=== PATIENT | female | born 2005 | race Caucasian/White ===

== ENCOUNTER → 2023-10-09 14:03 | Outpatient (BNVA) | payer MEDICAID, SELFPAY | PROVIDERS: Visit Provider Nurse Practitioner Women's Health | DX: Z34.90 Encounter for supervision of normal pregnancy, unspecified, unspecified trimester (principal); Z32.00 Encounter for pregnancy test, result unknown; R82.90 Unspecified abnormal findings in urine | CPT/HCPCS: 81000; 81025; 87077; 87086; 87184 ==

== ENCOUNTER → 2023-10-31 14:20 | Outpatient (BNVA) | payer MEDICAID, SELFPAY | PROVIDERS: Visit Provider Obstetrics & Gynecology | DX: Z36.87 Encounter for antenatal screening for uncertain dates (principal) | CPT/HCPCS: 76805 ==

== ENCOUNTER 2023-12-02 18:57 | Emergency (ER) | payer BC, MEDICAID, SELFPAY ==
[2023-12-02 19:04] VITALS: BP 110/75; PULSE 110; RESP 16; TEMP 36.9; O2SAT 100; BMI 24.7
--- NOTE | 2023-12-02 19:49 | ED_ITS ---
HPI - Chest Pain General: Chief Complaint: Chest Pain Stated Complaint: chest pains sob Time Seen by Provider: 12/02/23 19:16 History of Present Illness: 18-year-old female presents to the emerg ency department for shortness of breath and chest pain. SHe is 24 weeks with LMP of 06/14/2023. 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 Patient denies any complications related to her . She reports she is with her third child and is raising 2 at home. Patient reports her shortness of breath and chest pain comes and goes. She denies fever, swelling, hemoptysis, sputum production. She has a history of exercise-induced asthma and occasionally will have a mild wheeze. She says sometimes she gets pains in both sides of her chest that are sharp and fleeting. Denies palpitations, lightheadedness, syncope. She endorses anxiety and stress. Stress seems to make it worse. She denies any vaginal bleeding, vomiting, diarrhea, vaginal discharge. She is taking a vitamin and no other medications. Denies substance abuse. No history of cardiopulmonary disea se or arrhythmia. Associated symptoms: Deny abdominal pain, fever(s), nausea, syncope or vomiting Review of Systems General: Reports: 10 or more systems reviewed and unremarkable except in HPI and below Const: Denies: fever(s), chills or body aches Eyes: Denies: change in vision ENMT: Denies: throat pain Card: Denies: edema or syncope Resp: Denies: productive cough GI: Denies: abdominal pain, nausea, vomiting or diarrhea : Denies: flank pain, dysuria or urinary frequency Musc: Denies: neck pain, back pain, extremity pain or extremity swelling Skin/Breast: Denies: rash or erythema Neuro: Denies: headache(s), numbness in extremities, weakness in extremities, lack of coordination or difficulty walking Psych: Reports: anxiety and other ( Stress ) PFSH ED PFSH: Medical History No pertinent past medical history neghx:htn,dm,thyroid,dvt/pe PCP: none Surgical History No pertinent past surgical history Family History Denies family history of Colon cancer Ovarian cancer Diabetes Depression Heart disease Breast cancer Hypertension Uterine cancer Thyroid disease Stroke Physical Exam Narrative: EXAM NARRATIVE: Well-appearing, nontoxic, no acute distress. SpO2 was hooked up and she is 100% on room air with normal work of breathing. She has mild pallor to her skin although endorses pale skin at baseline. Conjunctiva and mucous membranes in the mouth are probably within normal limits or very slightly pale. Heart rate is noted to jump up by 10 bpm when I enter. Patient is noted to be anxious and on edge. She does have what I suspect to be a hyperdynamic murmur. No ankle swelling. No calf tenderness. No JVD. Lungs are clear to auscultation b ilaterally with normal work of breathing. Const: COMMON NORMALS: no limitations, alert and well nourished EXAM LIMITA TIONS: no altered mental status HENMT: COMMON NORMALS: normocephalic, atraumatic and external ears normal HEAD & SCALP: normocephalic and atraumatic EXTERNAL EAR: Yes external ears normal MOUTH: no muffled voice Eye: COMMON NORMALS: EOMs intact bilaterally and no scleral icterus Neck/C-Spine: COMMON NORMALS: no JVD GENERAL: Yes normal visual inspection and Yes trachea midline Resp: COMMON NORMALS: normal respiratory effort, No use of accessory muscles and clear to auscultation bilaterally AUSCULTATION: clear to auscultation bilaterally Cardio: COMMON NORMALS: no JVD and regular rhythm RATE: tachycardic RHYTHM: regular rhythm GI: COMMON NORMALS: Soft to palpation and non-tender PALPATION: Yes Soft to palpation and No Guarding due to palpation present (GI) Extremity: COMMON NORMALS: normal to inspection Neuro: COMMON NORMALS: moves all extremities, no focal motor deficits and no sensory deficits noted SENSORIUM/ORIENTATION: Yes alert SPEECH: speech normal Psych: COMMON NORMALS: mental status grossly normal, Normal thought process present, cooperative, normal affect and speech normal SPEECH: Yes normal speech THOUGHT PROCESS: Normal thought process present Skin: COMMON NORMALS: no rashes or lesions noted, turgor normal and no jaundice GENERAL SKIN EXAM: no rashes or lesions noted and turgor normal Course Vital Signs: Vital signs: Vital Signs Temperature 98.4 F 12/02/23 19:04 Pulse Rate 110 H 12/02/23 19:04 Respiratory Rate 16 12/02/23 19:04 Blood Pressure 110/75 12/02/23 19:04 Pulse Oximetry 100 12/02/23 19:04 Oxygen Delivery Me thod Room Air 12/02/23 19:04 MDM - Chest Pain Medical Decision Making 18-year-old female presents with atypical chest pain and shortness of breath. Low clinical suspicion for DVT or PE. Lungs are clear and there is no fever or sputum production. Low suspicion for pneumonia. No wheezing or prolonged expiratory phase; low suspicion for asthma exacerbation. She is not within the last month of gestation so cardiomyopathy of unlikely. No change in urine output and no signs of swelling or JVD, low suspicion for renal failure or primary heart failure. Patient may be slightly anemic. I asked to check her hemoglobin level but she does not like needles and is going to get blood drawn on anyway. She says she will add it to her lab test for . Patient is noted to be anxious and admits to stress. Times of stress seem to worsen her shortness of breath and chest pain. Low suspicion for acute coronary syndrome. Discussed differential diagnosis with patient. EKG was performed. Given normal work of breathing, normal lung exam, normal oxygenation, the patient did not feel like pursuing a chest x-ray or any further laboratory workup in the emergency department. I think this is reasonable given the low pretest suspicion for acute organic pathology at this time No radiology studies performed this visit EKG Data EKG 1: Interpretation: Sinus tachycardia, rate 103, normal axis, normal intervals, no concerning ST segment elevations or depressions, no hyperacute T waves. No ectopy. No signs of Brugada syndrome, some mild nonspecific T wave changes, no signs of hypertrophic obstructive cardiomyopathy. Discharge Plan Discharge Patient Disposition: Home Clinical Impression: Dyspnea Qualifiers: Dyspnea type: shortness of breath Qualified Code(s): R06.02 - Shortness of breath Condition: Stable Prescriptions: No Action Gummies 400 mcg-35 mg- 25 mg-5 mg tablet,chewable PO DAILY Discharge Orders: Discharge ED (Routine); Ordered 12/02/23 Ordered By: Wilmer Hadley Referrals: Fortunato Jackson MD [Physician] - 12/05/23 Discharge Diet: Usual diet Discharge Activity: Resume usual activity Patient Instructions: Shortness of Breath (ED) Activity Restrictions/Additional Instructions: Since you have deferred blood work in the emergency department, please call your doctor to see if they will add on a hemoglobin test for when you get your blood sugar checked. Return to the emergency department if you have a fever, coughing up blood, swelling, calf pain, palpitations, passing out, low blood pressure, or other emergent concerns. Coding Level of Care Code ED H[employer] for Truman Elkins
== END 2023-12-02 20:00 | disposition home or self-care (01) ==
PROVIDERS: Emergency Provider Emergency Medicine
DX: R06.02 Shortness of breath (principal)
CPT/HCPCS: 99282

== ENCOUNTER 2023-12-03 06:42 | Emergency (ER) | payer BC, MEDICAID, SELFPAY ==
--- NOTE | 2023-12-03 07:00 | ED_ITS ---
HPI - URI/Sore Throat 2 General: Chief Complaint: Upper Respiratory Infection Stated Complaint: cough, fever Time Seen by Provider: 12/03/23 06:44 Source: patient Mode of arrival: ambulatory History of Present Illness: 18-year-old female who is approximately 24 weeks with an LMP of 06/14/2023 EDC of 03/21/2024. She was seen yesterday for cough upper respiratory symptoms she had some chest discomfort as well she refused blood work at the time she was seen. ER note reviewed. She reported she has had some anemia during the . Presumptively based on her history to be viral respiratory infection possibly complicated by anemia and is stress. Patient returns today she is running a bit of a low-grade fever she is continuing to have nonproductive cough. Other family members in the home have similar symptoms. MD elicited complaint: fever and cough Exacerbating factors: nothing Relieving factors: nothing Associated symptoms: Reports congestion, cough and fever(s); Deny abdominal pain, chills or chest pain Review of Systems 2 Const: Reports: fever(s); Denies: chills Card: Denies: chest pain Resp: Reports: non-productive cough; Denies: dyspnea GI: Denies: abdominal pain : Denies: dysuria, urinary frequency or urinary urgency Musc: Denies: neck pain or back pain Skin/Breast: Denies: rash PFSH ED 2 PFSH: Medical History No pertinent past medical history neghx:htn,dm,thyroid,dvt/pe PCP: none Surgical History No pertinent past surgical history Family History Denies family history of Colon cancer Ovarian cancer Diabetes Depression Heart disease Breast cancer Hypertension Uterine cancer Thyroid disease Stroke Physical Exam 2 Const: COMMON NORMALS: no acute distress GENERAL APPEARANCE: cooperative and comfortable ORIENTATION/CONSCIOUSNESS: Yes awake, Yes oriented to person, Yes oriented to place and Yes oriented to time HENMT: COMMON NORMALS: normocephalic, atraumatic and hearing grossly normal bilaterally HEAD & SCALP: normocephalic and atraumatic Resp: COMMON NORMALS: normal respiratory effort, No retractions, No use of accessory muscles and clear to auscultation bilaterally AUSCULTATION: clear to auscultation bilaterally Cardio: COMMON NORMALS: regular rate, regular rhythm and No murmurs present (Cardio) RATE: regular rate RHYTHM: regular rhythm GI: COMMON NORMALS: Soft to palpation and No hepatosplenomegaly present A USCULTATION: Yes normoactive bowel sounds PALPATION: Yes Soft to palpation, No Tenderness to palpation present (GI), No Guarding due to palpation present (GI) and Yes No hepatosplenomegaly present Extremity: COMMON NORMALS: normal to inspection, capillary refill normal, no clubbing, cyanosis or edema, no calf tenderness and no pedal edema Neuro: SENSORIUM/ORIENTATION: Yes oriented to person, Yes oriented to place and Yes oriented to time Skin: COMMON NORMALS: no rashes or lesions noted GENERAL SKIN EXAM: no rashes or lesions noted Course 2 Vital Signs: Vital signs: Vital Signs Temperature 100 F H 12/03/23 07:03 Pulse Rate 65 12/03/23 07:54 Blood Pressure 125/87 12/03/23 07:54 Pulse Oximetry 100 12/03/23 07:54 Oxygen Delivery Me thod Room Air 12/03/23 07:03 MDM - URI/Sore Throat Medical Decision Making COVID and flu were negative. Patient did have a low-grade fever suspect is viral patient declined chest x-ray follow-up with primary care Medical Records I reviewed the patient's medical records. Lab Data I reviewed the patient's lab results. 12/03/23 07:33 12/03/23 07:33 Laboratory Results WBC 6.99 10^3/uL (4.5-13.0) 12/03/23 07:33 RBC 3.41 10^6/uL (3.85-5.65) L 12/03/23 07:33 Hgb 9.30 g/dL (12.4-14.8) L 12/03/23 07:33 Hct 29.6 % (36-47) L 12/03/23 07:33 MCV 86.8 fl (85-98) 12/03/23 07:33 MCH 27.3 pg (27-33) 12/03/23 07: MCHC 31.4 g/dL (30-55) 12/03/23 07:33 RDW 13.7 % (12.1-15.1) 12/03/23 07:33 Plt Count 217 10^3/cmm (157-399) 12/03/23 07:33 MPV 9.0 fL (7.4-10.4) 12/03/23 07:33 Neut % (Auto) 86.0 % 12/03/23 07:33 Lymph % (Auto) 5.7 % 12/03/23 07:33 [place] % (Auto) 6.3 % 12/03/23 07:33 Eos % (Auto) 1.0 % 12/03/23 07:33 Baso % (Auto) 0.3 % 12/03/23 07:33 Neut # (Auto) 6.01 10^3/uL (1.8-8.0) 12/03/23 07:33 Lymph # (Auto) 0.4 10^3/uL (1.5-6.5) L 12/03/23 07:33 [place] # (Auto) 0.4 10^3/uL (0.2-0.9) 12/03/23 07:33 Eos # (Auto) 0.1 10^3/uL (0.0-0.8) 12/03/23 07:33 Baso # (Auto) 0.0 10^3/uL (0.0-0.1) 12/03/23 07:33 Nucleated RBC % (auto) 0 % 12/03/23 07:33 Nucleated RBCs # 0.0 /100WBC 12/03/23 07:33 Sodium 132 mmol/L (136-145) L 12/03/23 07:33 Potassium 4.0 mmol/L (3.5-5.1) 12/03/23 07:33 Chloride 100 mmol/L (98-107) 12/03/23 07:33 Carbon Dioxide 22 mmol/L (22-29) 12/03/23 07:33 Anion Gap 14.0 (5-19) 12/03/23 07:33 BUN 3 mg/dL (6-20) L 12/03/23 07:33 Creatinine 0.5 mg/dL (0.5-0.9) 12/03/23 07:33 GFR Calculation 157.3 mL/min (90-130) H 12/03/23 07:33 Glucose 97 mg/dL (65-115) 12/03/23 07:33 Calculated Osmolality 270 mOsm/kg (285-295) L 12/03/23 07:33 Calcium 8.7 mg/dL (8.5-10.5) 12/03/23 07:33 Influenza Type A Ag negative (Negative) 12/03/23 08:12 Influenza Type B Ag negative (Negative) 12/03/23 08:12 SARS-CoV-2 Ag (Rapid) negative (Negative) 12/03/23 08:12 All radiology interpretation(s) finalized by discharge Discharge Plan Discharge Patient Disposition: Home Clinical Impression: Upper respiratory infection Condition: Stable Prescriptions: No Action Gummies 400 mcg-35 mg- 25 mg-5 mg tablet,chewable 1 tab PO DAILY sertraline [Zoloft] 25 mg tablet 25 mg PO DAILY Qty: 30 1RF Rx Instructions: take 1/2 tab daily x 7 days then increase to full tablet cephalexin 500 mg tablet 500 mg PO TID Qty: 30 0RF Discharge Orders: Discharge ED (Routine); Ordered 12/03/23 Ordered By: Star Clifford Discharge Diet: Usual diet Discharge Activity: Increase activity as tolerated Patient Instructions: Opioid Safety, Pain Management Activity Restrictions/Additional Instructions: Thank you for choosing [facility] for your healthcare needs today. Please realize this is an emergency room and that we are providing you with a medical screening exam and this may not be complete and all inclusive of all the testing and or work up that you may need to determine your ailment or severity of your illness. It is very important that you follow up as instructed or that you return to the Emergency Department should you have concerns or if your condition changes or worsens in any way. You are seen today for cough and a low-grade fever flu COVID are negative. We did recommend a chest x-ray and you have declined. Follow-up with your primary care doctor or economic historian. Coding Level of Care Code ED [employer] for Truman Elkins
[2023-12-03 07:03] VITALS: BP 112/77; PULSE 120; TEMP 37.7; O2SAT 97; BMI 24.5
[2023-12-03 07:39] LABS: Basophils % 0.3 %; Eosinophils # 0.1 10^3/uL (0.0-0.8); Hematocrit 29.6 % (36-47); Lymphocytes # 0.4 10^3/uL (1.5-6.5); Lymphocytes % 5.7 %; Mean Corpuscular HGB Conc 31.4 g/dL (30-55); Mean Corpuscular Hemoglobin 27.3 pg (27-33); Mean Corpuscular Volume 86.8 fl (85-98); Monocytes # 0.4 10^3/uL (0.2-0.9); Monocytes % 6.3 %; Neutrophils # 6.01 10^3/uL (1.8-8.0); Nucleated Red Blood Cells % 0 %; Platelet Count 217 10^3/cmm (157-399); Red Blood Count 3.41 10^6/uL (3.85-5.65); Red Cell Distribution Width 13.7 % (12.1-15.1); White Blood Count 6.99 10^3/uL (4.5-13.0)
[2023-12-03 07:54] VITALS: BP 125/87; PULSE 65; O2SAT 100
[2023-12-03 08:00] LABS: Blood Urea Nitrogen 3 mg/dL (6-20); Calcium 8.7 mg/dL (8.5-10.5); Carbon Dioxide 22 mmol/L (22-29); Chloride 100 mmol/L (98-107); Creatinine Clr Calc Pharmacy 148.0893; Glomerular Filtration Rate 157.3 mL/min (90-130); Glucose 97 mg/dL (65-115); Osmolality Calculated 270 mOsm/kg (285-295); Sodium 132 mmol/L (136-145)
[2023-12-03 08:33] LABS: Influenza A by IFA negative (Negative); Influenza B by IFA negative (Negative)
[2023-12-03 08:47] LABS: SARS Covid-2 Antigen negative (Negative)
== END 2023-12-03 09:22 | disposition home or self-care (01) ==
PROVIDERS: Emergency Provider Family Medicine
DX: J06.9 Acute upper respiratory infection, unspecified (principal); Z11.52 Encounter for screening for COVID-19
CPT/HCPCS: 36415; 80048; 85025; 87426; 87804; 99283

== ENCOUNTER → 2023-12-05 16:00 | Outpatient (BNVA) | payer BC, MEDICAID, SELFPAY | PROVIDERS: Visit Provider Nurse Practitioner Women's Health | DX: O99.891 Other specified diseases and conditions complicating pregnancy; R82.71 Bacteriuria; O26.892 Other specified pregnancy related conditions, second trimester; Z67.91 Unspecified blood type, Rh negative; O99.342 Other mental disorders complicating pregnancy, second trimester; F32.A Depression, unspecified; Z36.2 Encounter for other antenatal screening follow-up; Z3A.24 24 weeks gestation of pregnancy | CPT/HCPCS: 81000; 82950; 87077; 87086; 87184 ==

== ENCOUNTER → 2023-12-10 08:00 | Outpatient (BNVA) | payer BC, MEDICAID, SELFPAY | PROVIDERS: Visit Provider Obstetrics & Gynecology | DX: Z34.80 Encounter for supervision of other normal pregnancy, unspecified trimester (principal) | CPT/HCPCS: 82951; 82952 ==

== ENCOUNTER → 2024-01-02 15:39 | Outpatient (BNVA) | payer BC, MEDICAID, SELFPAY | PROVIDERS: Visit Provider Obstetrics & Gynecology | DX: Z34.80 Encounter for supervision of other normal pregnancy, unspecified trimester (principal) | CPT/HCPCS: 81000; 85025 ==

== ENCOUNTER 2024-01-25 21:36 | Outpatient (CLI) | payer BC, MEDICAID, SELFPAY ==
[2024-01-25 21:30] VITALS: BMI 25.3
[2024-01-25 21:47] VITALS: BP 117/68; PULSE 85
[2024-01-25 22:26] LABS: Blood Urine Trace (Negative); Glucose Urine UA Norm (Normal); Ketones Urine Negative (Negative); Protein Urine Trace (Negative); Specific Gravity, Urine 1.015 (1.005-1.030); Urine Appearance Cloudy (CLEAR); Urine Color Yellow (Yellow); pH Urine 7 (5-7)
[2024-01-25 22:27] LABS: Bilirubin Urine Neg (Negative); Leukocyte Esterase Urine 1+ (Negative); Nitrate Urine Positive (Negative); Urobilinogen Urine Norm (Negative)
[2024-01-25 22:28] LABS: Bacteria Urine 4+ /hpf; RBC Urine 0-4 /hpf (0-2)
[2024-01-25 22:29] LABS: Add Urine Culture? Yes; Hyaline Casts Urine 0-4 /lpf; Mucus Urine TRACE /hpf
[2024-01-25 22:52] VITALS: BP 115/59; PULSE 87
--- NOTE | 2024-01-25 23:00 | PC.NURSE ---
Patient's preferred pharmacy is [facility] however they are closed on Saturday and she would be unable to fill prescription until Saturday. 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 Confirmed with patient that [facility] hours are [phone] on Sundays.
== END 2024-01-25 23:02 | disposition home or self-care (01) ==
LOC: OPOB 21:37 → OBGYN 21:38
PROVIDERS: Visit Provider Family Medicine
DX: O26.899 Other specified pregnancy related conditions, unspecified trimester (principal); Z3A.00 Weeks of gestation of pregnancy not specified; R10.9 Unspecified abdominal pain
CPT/HCPCS: 59025; 81001; 87077; 87086; 87186; 99211

== ENCOUNTER 2024-01-29 08:40 | Oncology outpatient (recurring) (ONCR) | payer BC, MEDICAID, SELFPAY ==
[2024-01-29 11:36] VITALS: BP 114/72; PULSE 111; RESP 16; TEMP 36.7; O2SAT 99
[2024-01-29 11:55] VITALS: BP 99/64; PULSE 102; RESP 16; TEMP 36.4; O2SAT 99
[2024-01-29 12:43] VITALS: BP 99/64; PULSE 102; RESP 16; TEMP 36.4; O2SAT 99
== END 2024-01-30 23:59 | disposition home or self-care (01) ==
LOC: ONCMED 08:42
PROVIDERS: PCP Family Medicine; Visit Provider Family Medicine
DX: O26.893 Other specified pregnancy related conditions, third trimester (principal); Z67.91 Unspecified blood type, Rh negative
CPT/HCPCS: 36415; 36430; 86850; 86900; 90384

== ENCOUNTER 2024-02-12 10:25 | Outpatient (CLI) | payer BC, MEDICAID, SELFPAY ==
[2024-02-12 10:47] VITALS: BP 113/73; PULSE 127
[2024-02-12 11:47] LABS: Add Urine Culture? Yes; Bacteria Urine 3+ /hpf; Bilirubin Urine Neg (Negative); Blood Urine Neg (Negative); Glucose Urine UA Norm (Normal); Ketones Urine 1+ (Negative); Leukocyte Esterase Urine 2+ (Negative); Nitrate Urine Positive (Negative); Protein Urine Neg (Negative); RBC Urine 0-4 /hpf (0-2); Specific Gravity, Urine 1.015 (1.005-1.030); Squamous Epithelial Cell Urine 0-4 /hpf (0-5); Sulfosalicylic Acid Urine Negative (Negative); Urine Appearance Hazy (CLEAR); Urine Color Yellow (Yellow); Urobilinogen Urine Norm (Negative); WBC Urine >100 /hpf (0-5); pH Urine 8 (5-7)
[2024-02-12 11:48] VITALS: BMI 25.4
[2024-02-12 11:50] VITALS: BP 107/64; PULSE 93
[2024-02-12] MEDS: lactated ringers 1,000 ML 999 ML IV (12:00)
[2024-02-12] MEDS: cefTRIAXone 1,000 MG in sodium chloride 0.9% (plus) 50 ML 100 MG IV (12:37)
== END 2024-02-12 13:20 | disposition home or self-care (01) ==
LOC: OPOB 10:33 → OBGYN 10:34
PROVIDERS: Family Medicine; PCP Family Medicine; Visit Provider Family Medicine
DX: O26.899 Other specified pregnancy related conditions, unspecified trimester (principal); Z3A.00 Weeks of gestation of pregnancy not specified; R10.9 Unspecified abdominal pain
CPT/HCPCS: 59025; 81001; 87077; 87086; 87186; 99211; J0696; J7120

== ENCOUNTER 2024-02-27 20:36 | Inpatient (IN) | payer BC, MEDICAID, SELFPAY ==
[2024-02-27] VITALS (41 sets, daily range): BP systolic 89–130; BP diastolic 41–81; PULSE 71–121; TEMP 36.4–36.6; O2SAT 90–100; BMI 26.0
[2024-02-27 19:46] LABS: Nitrazine Paper, PH Negative
[2024-02-27 19:53] LABS: Actim Prom Negative
[2024-02-27 19:58] LABS: Urine Appearance Cloudy (CLEAR); Urine Color Yellow (Yellow); pH Urine 6.5 (5-7)
[2024-02-27 19:59] LABS: Add Urine Microscopic? YES; Bilirubin Urine Neg (Negative); Blood Urine Neg (Negative); Glucose Urine UA Norm (Normal); Ketones Urine Negative (Negative); Leukocyte Esterase Urine Negative (Negative); Nitrate Urine Negative (Negative); Protein Urine Neg (Negative); Urobilinogen Urine Norm (Negative)
[2024-02-27 20:02] LABS: Add Urine Culture? No; Amorphous Sediment Urine 2+ /hpf; Bacteria Urine TRACE /hpf; Mucus Urine TRACE /hpf; Squamous Epithelial Cell Urine 0-4 /hpf (0-5); WBC Urine 0-4 /hpf (0-5)
[2024-02-27 21:24] LABS: Basophils % 0.4 %; Eosinophils # 0.2 10^3/uL (0.0-0.8); Eosinophils % 1.9 %; Hematocrit 29.2 % (36-47); Mean Corpuscular HGB Conc 30.8 g/dL (30-55); Mean Corpuscular Hemoglobin 24.5 pg (27-33); Mean Corpuscular Volume 79.3 fl (85-98); Mean Platelet Volume 9.5 fL (7.4-10.4); Monocytes # 0.5 10^3/uL (0.2-0.9); Monocytes % 4.9 %; Neutrophils # 7.63 10^3/uL (1.8-8.0); Neutrophils % 72.9 %; Nucleated Red Blood Cells % 0 %; Platelet Count 244 10^3/cmm (157-399); Red Blood Count 3.68 10^6/uL (3.85-5.65); Red Cell Distribution Width 14.9 % (12.1-15.1); White Blood Count 10.46 10^3/uL (4.5-13.0)
[2024-02-27] MEDS: ampicillin 2,000 MG in sodium chloride 0.9% (plus) 50 ML 100 MG IV (21:29)
[2024-02-27] MEDS: lactated ringers 1,000 ML 999 ML IV ×2 (21:30→22:45)
--- NOTE | 2024-02-27 22:28 | ANES.PREANE2 ---
Pre-Anesthetic Assessment Height/Weight: Height 1.55 m Weight 62.596 kg Temp Pulse BP 97.9 F 118 H 125/68 02/27/24 18:33 02/27/24 21:33 02/27/24 21:33 Familial anesthetic complications: None Was Beta Neal taken within 24 hours: N/A Was Clonidine taken within 24 hours: N/A Last Intake: 15:00 Social No alcohol and No tobacco Exam alert, oriented x 3, clear to auscultation bilaterally and regular rate & rhythm Airway Submandibular: within normal limits Cervical ROM: within normal limits Mallampati: Class II Dentition: full History/ROS No significant history except as noted and No significant complaints Pulmonary Asthma CV/HEM Anemia None reported Hepatic None reported GI Gastroesophageal Reflux Disease Metabolic None reported Musc/skel None reported Neuropsych Depression Anesthetic Plan ASA status: 2 Anesthesia: Anesthesia Evaluation and Regional (specify below) (Epidural) Risk of > 500 ml blood loss (7ml/kg in children): No Medications/Allergies Home Medications Medication Instructions Recorded Confirmed Last Taken Type blood sugar diagnostic (Accu-Chek #100 ea 01/02/24 01/25/24 Unknown Rx Guide test strips) blood-glucose meter (Accu-Chek #1 ea 01/02/24 01/25/24 Unknown Rx Guide Glucose Meter) lancets (Accu-Chek Softclix #200 ea 01/02/24 01/25/24 Unknown Rx Lancets) Allergies Allergy/AdvReac Type Severity Reaction Status Date / Time No Known Allergies Allergy Verified 01/25/24 21:59 [facility] Anesthesia Medical History No pertinent past medical history neghx:htn,dm,thyroid,dvt/pe PCP: none Surgical History No pertinent past surgical history Family History Denies family history of Colon cancer Ovarian cancer Diabetes Depression Heart disease Breast cancer Hypertension Uterine cancer Thyroid disease Stroke Female Reproductive History : 3 Data Anesthesia 02/27/24 21:10 Short CBC 02/27/24 Range/Units 21:10 WBC 10.46 (4.5-13.0) 10^3/uL Hgb 9.00 L (12.4-14.8) g/dL Hct 29.2 L (36-47) % MCV 79.3 L (85-98) fl Plt Count 244 (157-399) 10^3/cmm Neut % (Auto) 72.9 % Neut # (Auto) 7.63 (1.8-8.0) 10^3/uL Urine 02/27/24 Range/Units 19:30 Urine Color Yellow (Yellow) Urine Appearance Cloudy A (CLEAR) Urine pH 6.5 (5-7) Ur Specific [place] 1.020 (1.005-1.030) Urine Protein Neg (Negative) Urine Glucose (UA) Norm (Normal) Urine Ketones Negative (Negative) Urine Nitrate Negative (Negative) Urine Bilirubin Neg (Negative) Ur Leukocyte Esterase Negative (Negative) Urine RBC None (0-2) /hpf Urine WBC 0-4 H (0-5) /hpf Cardiac Studies: No Data to Display
[2024-02-27] MEDS: ROPivacaine syringe 100 MG/50 ML SYRINGE 10 MG EPIDURAL (23:03)
--- NOTE | 2024-02-27 23:06 | ANES.PROC ---
Anesthesia Procedures Procedure/Date: 02/27/24 Epidural: Time Out Performed: Yes Consents Signed: Procedure Consent and NPO Consent Consent: requested by attending/covering physician, from patient, risks and benefits reviewed and patient agrees to proceed Lumbar Level: L3-L4 Epidural position: sitting Epidural procedure: sterile prep of area (betadine), 1% lidocaine to numb the area (3 mLs), neg for paresthesia, test dose given, 1.5% xylocaine 1:200k epi (3 mL/2 mL), 0.2% Ropivacaine bolus ml (5 mLs), placed PCEA, no systemic response, sterile dressing applied, L.U.D. no apparent complications and 0.2% Ropiavacaine @ mls/hr (10 mLs/hr) Additional Comments: Attempt x1. JUSTIN at 5cm, catheter placed to 10cm.
[2024-02-28] VITALS (65 sets, daily range): BP systolic 86–121; BP diastolic 47–75; PULSE 78–116; RESP 16–18; TEMP 36.4–36.9; O2SAT 97–100
[2024-02-28] MEDS: dextrose 5%-lactated ringers 1,000 ML 125 ML IV ×2 (01:14→09:21)
[2024-02-28] MEDS: ampicillin 1,000 MG in sodium chloride 0.9% (plus) 50 ML 100 MG IV ×3 (01:15→09:21)
[2024-02-28] MEDS: ROPivacaine syringe 100 MG/50 ML SYRINGE 10 MG EPIDURAL ×2 (03:17→07:54)
[2024-02-28] MEDS: ondansetron 2 mg/ML SDV 2 mL 4 MG IVP (04:49)
[2024-02-28] MEDS: oxytocin 30 UNIT/500 ML BAG IV (06:15)
--- NOTE | 2024-02-28 09:21 | P.HPUD_ITS ---
Labor & Delivery H&P Update Date of Procedure: February 28, 2024 Date H&P Performed: 02/27/24 Admission Diagnosis: 18-year-old 3 para 2-0-0-2 at 36 weeks and 6 days presenting in active labor Planned procedure: Vaginal delivery Other information: Patient is a 36-week and 6-day female who presented to the hospital concerned that she had rupture membranes. Both her actin PROM and her nitrazine sheets were negative, but she was noted to be micah consistently and she had cervical change while here. She progressed to 6 cm. As result of her p rogression, we admitted her for presumed vaginal delivery. An epidural was placed. Her is remarkable for having changed providers 2 times in her . The first time when she moved from [place]. The second time when she moved from Dr. Jackson to myself. Otherwise her has been relatively unremarkable. Her blood type was B-. 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 She passed her 3-hour glucose screen. She is rubella immune. Her GBS status is unknown. The remainder of her infectious disease profile is within normal limits. Related Problem List Diagnoses (1) 36 weeks gestation of : I anticipate vaginal delivery. (2) labor: A&P Assessment and plan (1) 36 weeks gestation of : Status: Acute (2) labor: Status: Acute
--- NOTE | 2024-02-28 09:59 | PM.DELIVERY ---
Delivery Note: Date of delivery: February 28, 2024 Pre-delivery diagnoses: 18-year-old 3 para 2-0-0-2 at 36 weeks and 6 days in active labor Post-delivery diagnoses: Status post spontaneous vaginal delivery Procedure: Spontaneous vaginal delivery Delivering Physician: Osman Brooks Estimated blood loss (mL): 50 Pre-Delivery Course: The patient presented to the hospital complaining of potential rupture membranes. Her actin PROM and nitrazine were negative. She did demonstrate cervical change and was ultimately found to be in active labor. She was placed on GBS protocol since her GBS status was unknown. An epidural was placed. She progressed to complete without difficulty. Delivery: DELIVERY: The patient progressed to complete without difficulty. She delivered a male with a weight of 6 pounds 6 ounces with Apgars of 7, 9. The baby was delivered from the BRANDON position. The baby's mouth and nose were suctioned at the site of the perineum. The baby was then completely delivered and placed on the mother's abdomen. The cord was then clamped and cut. A nuchal cord x 1 was noted. The baby was delivered through the cord. There was no meconium. The placenta and 3 vessel cord were delivered intact shortly thereafter. The perineum and vaginal vault were carefully examined. No lacerations were noted. Both the mother and the baby were in stable condition. Post-Delivery Status: Good History History History 3 Term 2 0 Miscarriages/Ectopic 0 Living Children 2 A&P Assessment and plan (1) Spontaneous vaginal delivery: I anticipate routine care. Coding Level of Care Code Acute Code for Chg Fwd Diagnoses Spontaneous vaginal delivery O80
[2024-02-28] MEDS: HYDROcodone-acetaminophen 5-325 mg Tablet PO (12:18)
--- NOTE | 2024-02-28 13:45 | PC.NURSE ---
MOVED PATIENT FROM OB 5 TO OB 12. PATIENT AMBULATED WELL, ORIENTED TO ROOM WITHOUT DIFFICULTY
[2024-02-28] MEDS: ibuprofen 800 mg tablet PO ×2 (14:00→21:02)
[2024-02-28] MEDS: docusate sodium 100 mg Capsule PO (21:02)
[2024-02-28 22:09] LABS: Hematocrit 24.4 % (36-47); Mean Corpuscular HGB Conc 30.3 g/dL (30-55); Mean Corpuscular Hemoglobin 23.8 pg (27-33); Mean Corpuscular Volume 78.5 fl (85-98); Mean Platelet Volume 9.1 fL (7.4-10.4); Platelet Count 218 10^3/cmm (157-399); Red Blood Count 3.11 10^6/uL (3.85-5.65); Red Cell Distribution Width 14.9 % (12.1-15.1); White Blood Count 11.88 10^3/uL (4.5-13.0)
[2024-02-29 04:31] VITALS: BP 111/66; PULSE 74; RESP 17; TEMP 36.7; O2SAT 97
[2024-02-29] MEDS: HYDROcodone-acetaminophen 5-325 mg Tablet PO (05:39)
--- NOTE | 2024-02-29 08:00 | ANE.PACU2 ---
Inpatient post-anesthesia follow up: Airway intact: Yes Vital signs: Temperature 98.1 F Pulse Rate 98 Respiratory Rate 16 Blood Pressure 118/75 Pulse Oximetry 98 Oxygen Delivery Me thod Room Air Oxygen Flow Rate Fraction of Inspir ed Oxygen Hydration adequate: Yes Nausea and vomiting: No Pain level: 1 Mental status: Baseline Epidural Start/End: Epidural Start Date: 02/27/24 Epidural Start Time: 22:37 Epidural End Date: 02/28/24 Epidural End Time: 12:36
[2024-02-29] MEDS: ibuprofen 800 mg tablet PO (09:18)
[2024-02-29] MEDS: docusate sodium 100 mg Capsule PO (09:18)
[2024-02-29] MEDS: PRENATAL VIT NO.130/IRON/FOLIC 1 EACH TABLET PO (09:18)
[2024-02-29 10:00] VITALS: BP 120/74; PULSE 67; RESP 16
--- NOTE | 2024-02-29 15:21 | PM.OBGYDC ---
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 Her nitrazine and her actin PROM were both negative. Regardless, she was noted to have contractions happening less than every 5 minutes and she was noted to have cervical change analyst 2 hours. Her GBS status is unknown, so she was placed on GBS protocol and admitted to the hospital. An epidural was placed. An amniotomy was performed. She progressed to complete without difficulty. Her delivery was unremarkable. Her course was also unremarkable. Her bleeding was within normal limits. She had some difficulty with breast-feeding but was able to pump without problems. Her pain was well-controlled. She had no concerns. Information Peripartum Data: Infant Delivery Method: Vaginal Physical Exam Narrative: The patient is alert. She appears comfortable. Her heart has a regular rate and rhythm with no murmurs appreciated. Lungs are clear to auscultation bilaterally. Her fundus is firm and below the umbilicus. Urinary Catheter Management: [place]: Cath Placed During This Visit: yes, but has since been removed by the nurse Reason for Continuing Indwelling Catheter: Decision to DC Catheter Urinary Catheter Date of Insertion: 02/27/24 Urinary Catheter Time of Insertion: 23:35 Date Urinary Catheter Removed: 02/28/24 Time Urinary Catheter Discontinued: 09:40 History History History 3 Term 2 0 Miscarriages/Ectopic 0 Living Children 2 Discharge Data Studies Completed and Pending Pending at discharge Category Date Time Status Antibody Identification Routine Lab 02/27/24 21:10 Results Complete Crossmatch Routine Lab 02/27/24 21:10 Results Rho D Immune Globulin Routine Lab 02/27/24 21:10 Results Type and Screen Routine Lab 02/27/24 21:10 Results Laboratory Results WBC 11.88 10^3/uL (4.5-13.0) 02/28/24 21:59 RBC 3.11 10^6/uL (3.85-5.65) L 02/28/24 21:59 Hgb 7.40 g/dL (12.4-14.8) L 02/28/24 21:59 Hct 24.4 % (36-47) L 02/28/24 21:59 MCV 78.5 fl (85-98) L 02/28/24 21:59 MCH 23.8 pg (27-33) L 02/28/24 21:59 MCHC 30.3 g/dL (30-55) 02/28/24 21:59 RDW 14.9 % (12.1-15.1) 02/28/24 21:59 Plt Count 218 10^3/cmm (157-399) 02/28/24 21:59 MPV 9.1 fL (7.4-10.4) 02/28/24 21:59 Neut % (Auto) 72.9 % 02/27/24 21:10 Lymph % (Auto) 19.0 % 02/27/24 21:10 [place] % (Auto) 4.9 % 02/27/24 21:10 Eos % (Auto) 1.9 % 02/27/24 21:10 Baso % (Auto) 0.4 % 02/27/24 21:10 Neut # (Auto) 7.63 10^3/uL (1.8-8.0) 02/27/24 21:10 Lymph # (Auto) 2.0 10^3/uL (1.5-6.5) 02/27/24 21:10 [place] # (Auto) 0.5 10^3/uL (0.2-0.9) 02/27/24 21:10 Eos # (Auto) 0.2 10^3/uL (0.0-0.8) 02/27/24 21:10 Baso # (Auto) 0.0 10^3/uL (0.0-0.1) 02/27/24 21:10 Nucleated RBC % (auto) 0 % 02/27/24 21:10 Nucleated RBCs # 0.0 /100WBC 02/27/24 21:10 Insulin-like GF I Negative 02/27/24 19:30 Urine Color Yellow (Yellow) 02/27/24 19:30 Urine Appearance Cloudy (CLEAR) A 02/27/24 19:30 Urine pH 6.5 (5-7) 02/27/24 19:30 Ur Specific [place] 1.020 (1.005-1.030) 02/27/24 19:30 Urine Protein Neg (Negative) 02/27/24 19:30 Urine Glucose (UA) Norm (Normal) 02/27/24 19:30 Urine Ketones Negative (Negative) 02/27/24 19:30 Urine Blood Neg (Negative) 02/27/24 19:30 Urine Nitrate Negative (Negative) 02/27/24 19:30 Urine Bilirubin Neg (Negative) 02/27/24 19:30 Urine Urobilinogen Norm mg/dL (Negative) 02/27/24 19:30 Ur Leukocyte Esterase Negative (Negative) 02/27/24 19:30 Urine RBC None /hpf (0-2) 02/27/24 19:30 Urine WBC 0-4 /hpf (0-5) H 02/27/24 19:30 Ur Squamous Epith Cells 0-4 /hpf (0-5) H 02/27/24 19:30 Amorphous Sediment 2+ /hpf 02/27/24 19:30 Urine Bacteria Trace /hpf (NONE) 02/27/24 19:30 Urine Mucus Trace /hpf 02/27/24 19:30 Fluid pH (paper) Negative 02/27/24 18:42 Blood Type B Negative 02/27/24 21:10 Rho(D) Type Rh negative 02/27/24 21:10 Antibody Screen Positive 02/27/24 21:10 Antibody Identification Anti-D 02/27/24 21:10 Screen Negative (Negative) 02/28/24 21:59 Vitals Last Vital Signs Temp 98.0 F 02/29/24 04:31 Pulse 74 02/29/24 04:31 Resp 17 02/29/24 04:31 BP 111/66 02/29/24 04:31 Pulse Ox 97 02/29/24 04:31 O2 Del Method Room Air 02/29/24 04:31 Results Labs OB ([facility]): Blood Type B Negative 02/27/24 Antibody Screen Positive 02/27/24 Hct 24.4 % (36-47) L 02/28/24 Hgb 7.40 g/dL (12.4-14.8) L 02/28/24 Rho(D) Type Rh negative 02/27/24 Plt Count 218 10^3/cmm (157-399) 02/28/24 Gest Glucose Tolerance mg/dL 12/10/23 HCG, Qual Positive (Negative) H 10/09/23 Micro Urine Specimen 02/12/24 Discharge Plan Discharge Patient Disposition: Home Condition: Stable Prescriptions: New iron 325 mg (65 mg iron) tablet 325 mg PO DAILY Qty: 30 3RF ibuprofen 800 mg tablet 800 mg PO TID PRN (Reason: pain) Qty: 45 0RF No Action (DME) blood-glucose meter [Accu-Chek Guide Glucose Meter] Misc See Rx Instructions .Route Qty: 1 0RF Rx Instructions: Fasting and 2 hours after each meal (DME) Accu-Chek Guide test strips Strip See Rx Instructions .Route Qty: 100 4RF Rx Instructions: Fasting and 2 hours after each meal (DME) lancets [Accu-Chek Softclix Lancets] Misc See Rx Instructions .Route Qty: 200 2RF Rx Instructions: Fasting and 2 hours after each meal Discharge Orders: Discharge Order (Routine); Ordered 02/29/24 Ordered By: Osman Brooks Referrals: Osman Brooks MD [Primary Care Provider] - 6 Weeks Discharge Diet: Usual diet Discharge Activity: Limit activity as instructed Patient Instructions: Depression (DC), Preeclampsia During (DC), Opioid Safety (DC), Hemorrhage (DC), OB Discharge Report, OB Food/Drug Interaction Guide, OB Care at Home, Opioid Safety, Abnormal Bleeding 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
[2024-02-29 19:20] VITALS: BP 118/75; PULSE 98; RESP 16; TEMP 36.7; O2SAT 98
[2024-02-29 19:34] VITALS: BP 118/75; PULSE 98; RESP 16; TEMP 36.7; O2SAT 98
[2024-02-29 19:55] VITALS: BP 118/75; PULSE 98; RESP 16; TEMP 36.7; O2SAT 98
== END 2024-02-29 20:05 | disposition home or self-care (01) | DRG 807 ==
LOC: OPOB 21:47 → OBGYN 21:47
PROVIDERS: Admitting Provider Family Medicine; PCP Family Medicine; Visit Provider Family Medicine
DX: O60.14X0 Preterm labor third trimester with preterm delivery third trimester, not applicable or unspecified (principal); Z37.0 Single live birth; O69.81X0 Labor and delivery complicated by cord around neck, without compression, not applicable or unspecified; Z3A.36 36 weeks gestation of pregnancy; O26.893 Other specified pregnancy related conditions, third trimester; Z67.21 Type B blood, Rh negative
CPT/HCPCS: 36415; 51702; 59025; 59409; 80503; 81001; 83986; 84112; 85025; 85027; 85460; 86850; 86870; 86900; 90384; 96374; 96376; 99211; J0290; J2405; J2590; J2795; J3010; J7120; J7121

== ENCOUNTER 2024-12-21 12:54 | Emergency (ER) | payer SELFPAY ==
[2024-12-21 13:02] VITALS: BP 114/76; PULSE 90; TEMP 36.9; O2SAT 99; BMI 22.2
[2024-12-21 13:29] LABS: Bilirubin Urine Negative (Negative); Blood Urine Negative (Negative); Glucose Urine UA Negative (Normal); Ketones Urine Trace (Negative); Leukocyte Esterase Urine Negative (Negative); Nitrate Urine Positive (Negative); Protein Urine Negative (Negative); Specific Gravity, Urine 1.024 (1.005-1.030); Urine Appearance Clear (CLEAR); Urine Color Yellow (Yellow)
[2024-12-21 13:31] LABS: Add Urine Microscopic? YES; Bacteria Urine 4+ /hpf; RBC Urine 0-2 /hpf (0-2)
[2024-12-21 13:40] LABS: Add Urine Culture? Yes
--- NOTE | 2024-12-21 14:36 | ED_ITS ---
HPI - Female Genitourinary 2 General: Chief complaint: Urogenital-Female Stated complaint: possible UTI Time Seen by Provider: 12/21/24 14:23 Source: patient Mode of arrival: ambulatory Limitations: no limitations History of Present Illness: Patient is a 19-year-old female comes to ED today believing that she most likely has a UTI. She is experiencing burning with urination. She also states she is but is unsure how far along she has. She states she did have some bleeding in November and was not sure if this was implantation bleeding on her menstrual cycle. 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 She is having some pelvic cramping and pain with intercourse. She has noted some vaginal discharge and vaginal odor. She states she normally does get vaginal discharge when she is . She also has a concern that her partner had intercourse with other women and reports a possibility of a sexually transmitted infection. She adamantly does not want a pelvic exam today. She is agreeable to self swab/collection. She is not running fevers. No vomiting. MD elicited complaint: dysuria, UTI and suspected Onset (ago): day(s) Quality of pain: burning Vaginal discharge: white and thick/cheesy Vaginal bleeding: none Exacerbating factors: urination and intercourse Relieving factors: none Associated symptoms: Reports vaginal discharge; Deny abdominal pain, headache(s) or nausea Treatment prior to arrival: none Patient : Yes Related Data Previous Rx's Medication Instructions Recorded blood sugar diagnostic (Accu-Chek #100 ea 01/02/24 Guide test strips) blood-glucose meter (Accu-Chek #1 ea 01/02/24 Guide Glucose Meter) lancets (Accu-Chek Softclix #200 ea 01/02/24 Lancets) ferrous sulfate 325 mg (65 mg 325 mg PO DAILY #30 tabs 02/29/24 iron) tablet (iron) cephalexin 500 mg capsule 500 mg PO Q6H 7 days #28 caps 12/21/24 metronidazole 500 mg tablet 500 mg PO BID 7 days #14 tabs 12/21/24 Allergies Allergy/AdvReac Type Severity Reaction Status Date / Time No Known Allergies Allergy Verified 12/21/24 13:07 Review of Systems 2 Const: Denies: fever(s), chills, body aches, fatigue or malaise Card: Denies: chest pain Resp: Denies: dyspnea GI: Denies: abdominal pain, nausea, vomiting, diarrhea, hematochezia or melena : Reports: dysuria, vaginal discharge and pelvic pain; Denies: flank pain or genital pruritis Musc: Denies: neck pain, back pain, extremity pain, extremity swelling, joint pain or joint swelling Skin/Breast: Denies: rash Neuro: Denies: headache(s) or dizziness PFSH ED 2 PFSH: Medical History No pertinent past medical history neghx:htn,dm,thyroid,dvt/pe PCP: none Surgical History No pertinent past surgical history Family History Denies family history of Colon cancer Ovarian cancer Diabetes Depression Heart disease Breast cancer Hypertension Uterine cancer Thyroid disease Stroke Physical Exam 2 Const: COMMON NORMALS: no acute distress, average body habitus, patient oriented x3, no limitations, healthy appearing, alert and well nourished Resp: COMMON NORMALS: normal respiratory effort and clear to auscultation bilaterally AUSCULTATION: clear to auscultation bilaterally Cardio: COMMON NORMALS: regular rate and regular rhythm RATE: regular rate RHYTHM: regular rhythm GI: COMMON NORMALS: Normal to inspection, nondistended, normoactive bowel sounds present, Soft to palpation, No hepatosplenomegaly present and no masses INSPECTION: Yes normal to inspection AUSCULTATION: Yes normoactive bowel sounds PALPATION: Yes Soft to palpation, Yes Tenderness to palpation present (GI) (very mild lower suprapubic/pelvis discomfort), No Guarding due to palpation present (GI), No Rigid due to palpation and Yes No hepatosplenomegaly present : COMMON NORMALS: Yes no CVA tenderness BLADDER/KIDNEY EXAM: Yes no CVA tenderness OTHER: defers pelvic exam Back/Pelvis: COMMON NORMALS: no CVA tenderness Neuro: COMMON NORMALS: patient oriented x3 SENSORIUM/ORIENTATION: Yes alert Course 2 Vital Signs: Vital signs: Vital Signs Temperature 98.4 F 12/21/24 13:02 Pulse Rate 90 12/21/24 13:02 Blood Pressure 114/76 12/21/24 13:02 Pulse Oximetry 99 12/21/24 13:02 Oxygen Delivery Me thod Room Air 12/21/24 13:02 MDM - Female Medical Decision Making Patient with concerns of UTI with burning with urination. She is also having some vaginal discharge and vaginal odor. She states she is currently but not sure how far along. Did have bleeding back in November but was unsure whether this was a menstrual cycle. Her hCG today is 5866. Ultrasound showing small intrauterine gestational sac corresponding to a 5w2d gestation. No cardiac activity identified. She did have a moderate to large subchorionic hemorrhage. Patient is not having any complaints of bleeding. She denied pelvic examination today. Due to discharge, she was given swabs for a wet prep and chlamydia/gonorrhea. Wet prep was positive for BV. Patient will be treated with Keflex for UTI as well as Flagyl for her BV. She will be contacted with results of her gonorrhea/chlamydia. Will have case management set her up with an OB provider for further care. Did discuss returning to the emergency department for severe bleeding or pain. Medical Records I reviewed the patient's medical records. Lab Data I reviewed the patient's lab results. 12/21/24 14:36 Radiology Impressions Transvaginal US 12/21/24 14:36 IMPRESSION: 1. No intrauterine crown-rump length or cardiac activity. 2. Small intrauterine gestational sac corresponds to a gestation of 5 weeks and 2 days. 3. Moderate to large subchorionic hemorrhage. 4. With no intrauterine gestation identified ectopic is not completely excluded. Laboratory Results WBC 4.80 10^3/uL (3.29-11.43) 12/21/24 14:36 RBC 4.35 10^6/uL (3.85-5.65) 12/21/24 14:36 Hgb 11.30 g/dL (11.27-16.99) 12/21/24 14:36 Hct 36.8 % (36-47) 12/21/24 14:36 MCV 84.6 fl (85-98) L 12/21/24 14:36 MCH 26.0 pg (27-33) L 12/21/24 14:36 MCHC 30.7 g/dL (30-55) 12/21/24 14:36 RDW 14.6 % (12.1-15.1) 12/21/24 14:36 Plt Count 275 10^3/cmm (157-399) 12/21/24 14:36 MPV 9.6 fL (7.4-10.4) 12/21/24 14:36 Neut % (Auto) 48.7 % 12/21/24 14:36 Lymph % (Auto) 39.4 % 12/21/24 14:36 [place] % (Auto) 7.1 % 12/21/24 14:36 Eos % (Auto) 3.8 % 12/21/24 14:36 Baso % (Auto) 0.8 % 12/21/24 14:36 Neut # (Auto) 2.34 10^3/uL (1.8-7.7) 12/21/24 14:36 Lymph # (Auto) 1.9 10^3/uL (0.8-4.8) 12/21/24 14:36 [place] # (Auto) 0.3 10^3/uL (0.2-0.9) 12/21/24 14:36 Eos # (Auto) 0.2 10^3/uL (0.0-0.8) 12/21/24 14:36 Baso # (Auto) 0.0 10^3/uL (0.0-0.1) 12/21/24 14:36 Nucleated RBC % (auto) 0 % 12/21/24 14:36 Nucleated RBCs # 0.0 /100WBC 12/21/24 14:36 Ser , Semi-Qnt 5866.00 mIU/mL 12/21/24 14:36 Urine Color Yellow (Yellow) 12/21/24 13:18 Urine Appearance Clear (CLEAR) 12/21/24 13:18 Urine pH 6.0 (5-7) 12/21/24 13:18 Ur Specific [place] 1.024 (1.005-1.030) 12/21/24 13:18 Urine Protein Negative (Negative) 12/21/24 13:18 Urine Glucose (UA) Negative (Normal) 12/21/24 13:18 Urine Ketones Trace (Negative) 12/21/24 13:18 Urine Blood Negative (Negative) 12/21/24 13:18 Urine Nitrate Positive (Negative) A 12/21/24 13:18 Urine Bilirubin Negative (Negative) 12/21/24 13:18 Urine Urobilinogen 1.0 mg/dL (Negative) 12/21/24 13:18 Ur Leukocyte Esterase Negative (Negative) 12/21/24 13:18 Urine RBC 0-2 /hpf (0-2) 12/21/24 13:18 Urine WBC 6-10 /hpf (0-5) 12/21/24 13:18 Ur Squamous Epith Cells 6-10 /hpf (0-5) 12/21/24 13:18 Amorphous Sediment Not Reportable 12/21/24 13:18 Urine Bacteria 4+ /hpf (NONE) H 12/21/24 13:18 Hyaline Casts 0.40 /lpf 12/21/24 13:18 All radiology interpretation(s) finalized by discharge Discharge Plan Discharge Patient Disposition: Home Clinical Impression: Bacterial vaginosis in , at early stage UTI in Qualifiers: Trimester: first trimester Qualified Code(s): O23.41 - Unspecified infection of urinary tract in , first trimester Condition: Stable Prescriptions: New metronidazole 500 mg tablet 500 mg PO BID 7 Days Qty: 14 0RF cephalexin 500 mg capsule 500 mg PO Q6H 7 Days Qty: 28 0RF No Action (DME) blood-glucose meter [Accu-Chek Guide Glucose Meter] Misc See Rx Instructions .Route Qty: 1 0RF Rx Instructions: Fasting and 2 hours after each meal (DME) Accu-Chek Guide test strips Strip See Rx Instructions .Route Qty: 100 4RF Rx Instructions: Fasting and 2 hours after each meal (DME) lancets [Accu-Chek Softclix Lancets] Misc See Rx Instructions .Route Qty: 200 2RF Rx Instructions: Fasting and 2 hours after each meal ferrous sulfate [iron] 325 mg (65 mg iron) tablet 325 mg PO DAILY Qty: 30 3RF Discharge Orders: Discharge ED (Routine); Ordered 12/21/24 Ordered By: Liliana Chua Referrals: Osman Brooks MD [Primary Care Provider] - Activity Restrictions/Additional Instructions: As we discussed, case management should contact you to set you up with an OB provider for further OB care. We will place you on antibiotics for your UTI and bacterial vaginosis. As we discussed, your chlamydia/gonorrhea swab results are not reported yet. You should be contacted if these are positive. You need to return to the emergency department immediately for worsening pelvic pain or severe bleeding. We spoke about your ultrasound today and the findings of a moderate to large subchorionic hemorrhage. Coding Level of Care Code ED Telephone Maintenance Mechanic for Truman Elkins
--- NOTE | 2024-12-21 14:36 | US_ITS ---
WS: [id number] EARLY OBSTETRICAL ULTRASOUND (<14 WEEKS). HISTORY: preg/pain COMPARISON: None available. Single intrauterine gestational sac is identified. Moderate to large subchorionic hemorrhage is noted around the posterior gestational sac. Subchorionic hemorrhage encases just less than 50% of the sac. No pole or cardiac activity is identified. Sac measurement corresponds to a gestation of 5 wee ks and 2 days. Cervix is closed. No free fluid. Normal size ovaries with no mass. US/US OB transvaginal [id number] IMPRESSION: 1. No intrauterine crown-rump length or cardiac activity. 2. Small intrauterine gestational sac corresponds to a gestation of 5 weeks an d 2 days. 3. Moderate to large subchorionic hemorrhage. 4. With no intrauterine gestation identified ectopic is not completely exclude d.
[2024-12-21 14:49] LABS: Basophils % 0.8 %; Eosinophils # 0.2 10^3/uL (0.0-0.8); Eosinophils % 3.8 %; Hematocrit 36.8 % (36-47); Lymphocytes # 1.9 10^3/uL (0.8-4.8); Lymphocytes % 39.4 %; Mean Corpuscular HGB Conc 30.7 g/dL (30-55); Mean Corpuscular Volume 84.6 fl (85-98); Mean Platelet Volume 9.6 fL (7.4-10.4); Monocytes # 0.3 10^3/uL (0.2-0.9); Monocytes % 7.1 %; Neutrophils # 2.34 10^3/uL (1.8-7.7); Neutrophils % 48.7 %; Nucleated Red Blood Cells % 0 %; Platelet Count 275 10^3/cmm (157-399); Red Blood Count 4.35 10^6/uL (3.85-5.65); Red Cell Distribution Width 14.6 % (12.1-15.1)
[2024-12-21 16:50] VITALS: BP 108/72; PULSE 95; TEMP 36.9; O2SAT 99
[2024-12-21 16:53] VITALS: BP 108/72; PULSE 95; O2SAT 99
[2024-12-21 16:55] LABS: Chlamydia Trachomatis NOT DETECTED; Neisseria Gonorrhea NOT DETECTED
--- NOTE | 2024-12-23 08:30 | DCPLANNER ---
[facility] follow up and care
== END 2024-12-21 16:53 | disposition home or self-care (01) ==
PROVIDERS: Emergency Medicine; Emergency Provider Physician Assistant; PCP Family Medicine
DX: O23.41 Unspecified infection of urinary tract in pregnancy, first trimester (principal); Z3A.01 Less than 8 weeks gestation of pregnancy
CPT/HCPCS: 36415; 76817; 81001; 84702; 85025; 87077; 87086; 87186; 87210; 87491; 87591; 99284

== ENCOUNTER 2025-03-27 19:36 | Emergency (ER) | payer SELFPAY ==
[2025-03-27 19:42] VITALS: BP 130/87; PULSE 93; RESP 17; TEMP 36.7; O2SAT 99; BMI 22.6
--- NOTE | 2025-03-27 20:06 | USR_ITS ---
PROCEDURE INFORMATION: Exam: US , Limited Exam date and time: 03/27/2025 9:08 PM Age: 19 years old Clinical indication: complicated by abdominal or pelvic pain; Other: Back; Gestational age or lmp: 19w1d; ; Additional info: Contractions, pelvic pain 19w preg LABS AND CLINICAL REPORTS: Gestational age (Established): 19 w 1 d Estimated due date (Established): 08/20/2025 TECHNIQUE: Imaging protocol: Real-time ultrasound of the maternal uterus with image documentation. Exam focused on the clinical indication. COMPARISON: US OB transvaginal [id number] 12/21/2024 3:27 PM FINDINGS: Gestation: There is a single intrauterine fetus in a transverse lie. heart rate: 142 bpm Placenta: Placenta is anterior with no evidence of previa. Amniotic fluid (Qualitative): Normal amount of amniotic fluid. gross body movement Limited views of the fetus show motion on real-time and cardiac activity of 142 bpm. Ultrasound biometry and anatomic assessment was not performed at this time. Provided clinical gestational age of 19 weeks 1 day. MATERNAL: Cervix: Cervical length measures 3.9 cm. Maternal cervix is long and closed measuring about 3.9 cm. No evidence of funneling. Intraperitoneal space: No cul-de-sac free fluid. Other findings: Limited transabdominal OB ultrasound was performed in an acute setting due to maternal pain. Normal ovaries not definitively identified. US/US OB limited [id number] IMPRESSION: 1. Limited transabdominal OB ultrasound. 2. Single living intrauterine fetus in a transverse line with normal amniotic fluid level with no obvious acute OB complication. 3. No cul-de-sac free fluid. Maternal ovaries not definitively identified.
[2025-03-27 20:47] VITALS: BP 119/78; PULSE 87; O2SAT 100
[2025-03-27 21:04] LABS: Basophils % 0.3 %; Eosinophils # 0.1 10^3/uL (0.0-0.8); Eosinophils % 1.7 %; Lymphocytes % 27.7 %; Mean Corpuscular HGB Conc 31.9 g/dL (30-55); Mean Corpuscular Volume 87.6 fl (85-98); Mean Platelet Volume 9.1 fL (7.4-10.4); Monocytes # 0.4 10^3/uL (0.2-0.9); Monocytes % 5.8 %; Neutrophils # 4.55 10^3/uL (1.8-7.7); Neutrophils % 64.2 %; Nucleated Red Blood Cells % 0 %; Platelet Count 229 10^3/cmm (157-399); Red Blood Count 3.54 10^6/uL (3.85-5.65); Red Cell Distribution Width 14.6 % (12.1-15.1); White Blood Count 7.08 10^3/uL (3.29-11.43)
[2025-03-27 21:36] LABS: Alanine Aminotransferase 8 U/L (0-33); Albumin Level 3.6 g/dL (3.5-5.2); Alkaline Phosphatase 77 U/L (35-105); Anion Gap 13.6 (5-19); Aspartate Amino Transferase 11 U/L (0-32); Blood Urea Nitrogen 7 mg/dL (6-20); Calcium 8.2 mg/dL (8.5-10.5); Carbon Dioxide 22 mmol/L (22-29); Chloride 104 mmol/L (98-107); Creatinine Clr Calc Pharmacy 141.7572; Globulin 2.6 g/dL (1.3-4.6); Glomerular Filtration Rate 155.7 mL/min (90-130); Glucose 86 mg/dL (65-115); Osmolality Calculated 279 mOsm/kg (285-295); Potassium 3.6 mmol/L (3.5-5.1); Sodium 136 mmol/L (136-145); Total Bilirubin 0.2 mg/dL (0.15-1.2); Total Protein 6.2 g/dL (6.6-8.7)
--- NOTE | 2025-03-27 22:22 | W.ED.PREGNAN ---
HPI - General: Chief complaint: OB/Uterine Contractions Stated complaint: 19weeks Prg feels like premature labor Time Seen by Provider: 03/27/25 21:06 History of Present Illness: 19-year-old G3, P2 female. She is 19 weeks . She has been having cramping today. Cramping seems to be getting more often and more intense. She has had labor in the past, and was worried that she may be micah. No fever. No vomiting. No vaginal bleeding or discharge. Pain is generalized in the lower pelvis and back. Date of Last Menstrual Period: 11/13/24 Related Data Previous Rx's ?Medication ?Instructions ?Recorded blood sugar diagnostic (Accu-Chek #100 ea 01/02/24 Guide test strips) blood-glucose meter (Accu-Chek #1 ea 01/02/24 Guide Glucose Meter) lancets (Accu-Chek Softclix #200 ea 01/02/24 Lancets) ferrous sulfate 325 mg (65 mg 325 mg PO DAILY #30 tabs 02/29/24 iron) tablet (iron) Allergies Allergy/AdvReac Type Severity Reaction Status Date / Time No Known Allergies Allergy Verified 12/21/24 13:07 PFS ED PFSH: Medical History No pertinent past medical history neghx:htn,dm,thyroid,dvt/pe PCP: none Surgical History No pertinent past surgical history Family History Denies family history of Colon cancer Ovarian cancer Diabetes Depression Heart disease Breast cancer Hypertension Uterine cancer Thyroid disease Stroke Female Reproductive History: Date of last menstrual period: 11/13/24 Physical Exam Const: COMMON NORMALS: no acute distress GENERAL APPEARANCE: cooperative; not ill appearing and not frail appearing HENMT: COMMON NORMALS: normocephalic, atraumatic and Normal external nose present HEAD & SCALP: normocephalic and atraumatic FACE & SINUS: normal facial exam and face symmetric NOSE: Normal external nose present Eye: COMMON NORMALS: Equal, round and reactive pupils present and EOMs intact bilaterally PUPIL: Yes Equal, round and reactive pupils present Neck/C-Spine: GENERAL: Yes trachea midline Chest: CHEST: Yes Symmetrical chest wall rise Resp: COMMON NORMALS: normal respiratory effort, No retractions, No use of accessory muscles and clear to auscultation bilaterally AUSCULTATION: clear to auscultation bilaterally Cardio: COMMON NORMALS: regular rate and regular rhythm RATE: regular rate RHYTHM: regular rhythm GI: COMMON NORMALS: Normal to inspection, nondistended, normoactive bowel sounds present Extremity: COMMON NORMALS: no pedal edema Neuro: [place] COMA SCALE: document GCS findings [place] coma scale eye opening: Spontaneous [place] coma scale verbal response: Orientated [place] coma scale motor response: Obey commands [place] coma scale total score: 15 SENSORY EXAM: Yes extremities (intact) Psych: COMMON NORMALS: speech normal SPEECH: Yes normal speech Skin: COMMON NORMALS: no rashes or lesions noted GENERAL SKIN EXAM: no rashes or lesions noted Course Vital Signs: Vital signs: Vital Signs Temperature 98.1 F 03/27/25 19:42 Pulse Rate 96 03/27/25 23:11 Respiratory Rate 17 03/27/25 19:42 Blood Pressure 97/67 03/27/25 23:11 Pulse Oximetry 99 03/27/25 23:11 Oxygen Delivery Me thod Room Air 03/27/25 20:47 MDM - OB/Uterine Contractions Medical Decision Making Hemoglobin is 10. Other laboratory is not remarkable. Ultrasound shows an IUP in transverse position with normal amniotic fluid level, no complication. Heart rate is appropriate. Other laboratory is essentially normal. Tocos were placed on the patient, with no contractions noted. She feels better after using the restroom. Contractions are likely [place] English contractions. She appears well, and is feeling improved. She will be discharged to return for any further problems. She will follow-up with her doctor. Lab Data 03/27/25 20:55 03/27/25 20:55 Radiology Impressions Obstetrics Ultrasound 03/27/25 20:06 IMPRESSION: 1. Limited transabdominal OB ultrasound. 2. Single living intrauterine fetus in a transverse line with normal amniotic fluid level with no obvious acute OB complication. 3. No cul-de-sac free fluid. Maternal ovaries not definitively identified. Laboratory Results WBC 7.08 10^3/uL (3.29-11.43) 03/27/25 20:55 RBC 3.54 10^6/uL (3.85-5.65) L 04/26/25 20:55 Hgb 9.90 g/dL (11.27-16.99) L 03/27/25 20:55 Hct 31.0 % (36-47) L 03/27/25 20:55 MCV 87.6 fl (85-98) 03/27/25 20:55 MCH 28.0 pg (27-33) 03/27/25 20:55 MCHC 31.9 g/dL (30-55) 03/27/25 20:55 RDW 14.6 % (12.1-15.1) 03/27/25 20:55 Plt Count 229 10^3/cmm (157-399) 03/27/25 20:55 MPV 9.1 fL (7.4-10.4) 03/27/25 20:55 Neut % (Auto) 64.2 % 03/27/25 20:55 Lymph % (Auto) 27.7 % 03/27/25 20:55 [place] % (Auto) 5.8 % 03/27/25 20:55 Eos % (Auto) 1.7 % 03/27/25 20:55 Baso % (Auto) 0.3 % 03/27/25 20:55 Neut # (Auto) 4.55 10^3/uL (1.8-7.7) 03/27/25 20:55 Lymph # (Auto) 2.0 10^3/uL (0.8-4.8) 03/27/25 20:55 [place] # (Auto) 0.4 10^3/uL (0.2-0.9) 03/27/25 20:55 Eos # (Auto) 0.1 10^3/uL (0.0-0.8) 03/27/25 20:55 Baso # (Auto) 0.0 10^3/uL (0.0-0.1) 03/27/25 20:55 Nucleated RBC % (auto) 0 % 03/27/25 20:55 Nucleated RBCs # 0.0 /100WBC 03/27/25 20:55 PT 12.80 SECONDS (12.1-14.9) 03/27/25 20:55 INR 0.90 (0.8-1.2) 03/27/25 20:55 APTT 24.0 SECONDS (23.9-36.7) 03/27/25 20:55 Sodium 136 mmol/L (136-145) 03/27/25 20:55 Potassium 3.6 mmol/L (3.5-5.1) 03/27/25 20:55 Chloride 104 mmol/L (98-107) 03/27/25 20:55 Carbon Dioxide 22 mmol/L (22-29) 03/27/25 20:55 Anion Gap 13.6 (5-19) 03/27/25 20:55 BUN 7 mg/dL (6-20) 03/27/25 20:55 Creatinine 0.5 mg/dL (0.5-0.9) 03/27/25 20:55 GFR Calculation 155.7 mL/min (90-130) H 03/27/25 20:55 Glucose 86 mg/dL (65-115) 03/27/25 20:55 Calculated Osmolality 279 mOsm/kg (285-295) L 03/27/25 20:55 Calcium 8.2 mg/dL (8.5-10.5) L 03/27/25 20:55 Total Bilirubin 0.2 mg/dL (0.15-1.2) 03/27/25 20:55 AST 11 U/L (0-32) 03/27/25 20:55 ALT 8 U/L (0-33) 03/27/25 20:55 Alkaline Phosphatase 77 U/L (35-105) 03/27/25 20:55 Total Protein 6.2 g/dL (6.6-8.7) L 03/27/25 20:55 Albumin 3.6 g/dL (3.5-5.2) 03/27/25 20:55 Globulin 2.6 g/dL (1.3-4.6) 03/27/25 20:55 Ser , Semi-Qnt 52077.00 mIU/mL 03/27/25 20:55 Blood Type B Negative 03/27/25 20:55 Rho(D) Type Rh negative 03/27/25 20:55 Antibody Screen Negative 03/27/25 20:55 All radiology interpretation(s) finalized by discharge Discharge Plan Discharge Patient Disposition: Home Clinical Impression: [place] English contractions Condition: Stable Prescriptions: No Action (DME) blood-glucose meter [Accu-Chek Guide Glucose Meter] Misc See Rx Instructions .Route Qty: 1 0RF Rx Instructions: Fasting and 2 hours after each meal (DME) Accu-Chek Guide test strips Strip See Rx Instructions .Route Qty: 100 4RF Rx Instructions: Fasting and 2 hours after each meal (DME) lancets [Accu-Chek Softclix Lancets] Misc See Rx Instructions .Route Qty: 200 2RF Rx Instructions: Fasting and 2 hours after each meal ferrous sulfate [iron] 325 mg (65 mg iron) tablet 325 mg PO DAILY Qty: 30 3RF Discharge Orders: Discharge ED (Routine); Ordered 03/27/25 Ordered By: Colby Hudson Referrals: Osman Brooks MD [Primary Care Provider] - 1-3 days Patient Instructions: [place]fon[place] English Contractions (ED), Opioid Safety, Pain Management Activity Restrictions/Additional Instructions: Make sure you stay hydrated. Return for worsening pain, vaginal bleeding or discharge, fever, any other concerning symptoms. Call your doctor Saturday morning for a follow-up appointment. Print Language: Estonian Coding Level of Care Code ED Stripping Machine Operator for Truman Elkins
[2025-03-27 23:11] VITALS: BP 97/67; PULSE 96; O2SAT 99
== END 2025-03-27 23:12 | disposition home or self-care (01) ==
PROVIDERS: Emergency Provider Emergency Medicine; PCP Family Medicine
DX: O47.02 False labor before 37 completed weeks of gestation, second trimester (principal); Z3A.19 19 weeks gestation of pregnancy
CPT/HCPCS: 36415; 76815; 80053; 84702; 85025; 85610; 85730; 86850; 86900; 99284

== ENCOUNTER 2025-05-13 18:37 | Outpatient (CLI) | payer SELFPAY ==
[2025-05-13 18:50] VITALS: BP 126/73; PULSE 86
[2025-05-13 18:59] LABS: Bilirubin Urine Negative (Negative); Blood Urine Trace (Negative); Glucose Urine UA Negative (Normal); Ketones Urine Trace (Negative); Leukocyte Esterase Urine Trace (Negative); Nitrate Urine Positive (Negative); Protein Urine Trace (Negative); Specific Gravity, Urine 1.027 (1.005-1.030); Urine Appearance Cloudy (CLEAR); Urine Color Yellow (Yellow); pH Urine 6.5 (5-7)
[2025-05-13 19:04] LABS: Bacteria Urine EXCEEDS /hpf; Hyaline Casts Urine 4.11 /lpf; RBC Urine 0-2 /hpf (0-2); WBC Urine 21-50 /hpf (0-5)
[2025-05-13 19:10] VITALS: BP 126/68; PULSE 87
[2025-05-13] MEDS: nitrofurantoin SR (BID) 100 mg Capsule PO (19:18)
[2025-05-13 19:25] VITALS: BP 126/68; PULSE 87; RESP 16
== END 2025-05-13 19:25 | disposition home or self-care (01) ==
LOC: OPOB 18:37 → OBGYN 18:38
PROVIDERS: PCP Family Medicine; Visit Provider Family Medicine
DX: O26.899 Other specified pregnancy related conditions, unspecified trimester (principal); Z3A.00 Weeks of gestation of pregnancy not specified; R10.2 Pelvic and perineal pain; M54.9 Dorsalgia, unspecified
CPT/HCPCS: 81001; 99211; J9999

== ENCOUNTER 2025-06-19 15:22 | Outpatient (CLI) | payer SELFPAY ==
[2025-06-19 15:19] VITALS: BMI 25.7
[2025-06-19 15:32] VITALS: BP 120/70; PULSE 105
[2025-06-19 15:41] LABS: Glucose Urine UA Negative (Normal); Nitrate Urine Negative (Negative); Specific Gravity, Urine 1.011 (1.005-1.030)
[2025-06-19 15:47] VITALS: BP 111/66; PULSE 100
[2025-06-19 16:02] VITALS: BP 114/64; PULSE 94
[2025-06-19 16:17] VITALS: BP 109/64; PULSE 109
== END 2025-06-19 16:20 | disposition home or self-care (01) ==
LOC: OPOB 15:22 → OBGYN 15:23
PROVIDERS: PCP Family Medicine; Visit Provider Family Medicine
DX: O26.859 Spotting complicating pregnancy, unspecified trimester (principal); Z3A.00 Weeks of gestation of pregnancy not specified; R10.9 Unspecified abdominal pain
CPT/HCPCS: 59025; 81001; 99211

== ENCOUNTER 2025-07-02 20:33 | Outpatient (CLI) | payer SELFPAY ==
[2025-07-02] VITALS (13 sets, daily range): BP systolic 116–148; BP diastolic 67–85; PULSE 83–105; BMI 25.9
[2025-07-02 22:04] LABS: Glucose Urine UA Negative (Normal); Nitrate Urine Negative (Negative); Specific Gravity, Urine 1.013 (1.005-1.030)
[2025-07-02] MEDS: betamethasone susp 6 mg/mL 5 mL 12 MG IM (22:16)
[2025-07-03 00:02] VITALS: BP 119/60; PULSE 88
[2025-07-03 00:05] VITALS: BP 119/60; PULSE 88; RESP 18
== END 2025-07-03 00:15 | disposition home or self-care (01) ==
LOC: OPOB 20:34 → OBGYN 20:36
PROVIDERS: PCP Family Medicine; Visit Provider Family Medicine
DX: O26.899 Other specified pregnancy related conditions, unspecified trimester (principal); Z3A.00 Weeks of gestation of pregnancy not specified
CPT/HCPCS: 59025; 81001; 96372; 99211; J0702; J7120

== ENCOUNTER 2025-07-03 10:50 | Outpatient (CLI) | payer SELFPAY ==
[2025-07-03 10:55] VITALS: BMI 25.9
[2025-07-03 11:00] VITALS: BP 137/68; PULSE 99
[2025-07-03 11:15] VITALS: BP 137/79; PULSE 114
[2025-07-03 11:31] VITALS: BP 131/60; PULSE 110
[2025-07-03 11:45] VITALS: BP 111/54; PULSE 110
== END 2025-07-03 11:56 | disposition left against medical advice (07) ==
LOC: OPOB 10:50 → OBGYN 10:52
PROVIDERS: PCP Family Medicine; Visit Provider Family Medicine
DX: O26.899 Other specified pregnancy related conditions, unspecified trimester (principal); Z3A.00 Weeks of gestation of pregnancy not specified; R10.9 Unspecified abdominal pain
CPT/HCPCS: 59025; 99211

== ENCOUNTER 2025-07-05 17:15 | Outpatient (CLI) | payer SELFPAY ==
[2025-07-05] VITALS (7 sets, daily range): BP systolic 95–120; BP diastolic 51–73; PULSE 82–110; BMI 26.2
== END 2025-07-05 19:08 | disposition home or self-care (01) ==
LOC: OPOB 17:18 → OBGYN 17:18
PROVIDERS: PCP Family Medicine; Visit Provider Family Medicine
DX: O26.899 Other specified pregnancy related conditions, unspecified trimester (principal); Z3A.00 Weeks of gestation of pregnancy not specified; R10.9 Unspecified abdominal pain
CPT/HCPCS: 59025; 99211

== ENCOUNTER 2025-07-23 22:18 | Outpatient (CLI) | payer SELFPAY ==
[2025-07-23 22:32] VITALS: BP 122/75; PULSE 93
[2025-07-23 22:39] VITALS: RESP 16
[2025-07-23 22:50] VITALS: BMI 26.4
[2025-07-23 23:05] VITALS: BP 120/77; PULSE 111
[2025-07-23 23:35] VITALS: BP 116/65; PULSE 120
[2025-07-24 00:06] VITALS: BP 128/74; PULSE 111
[2025-07-24 00:34] VITALS: BP 122/78; PULSE 100
[2025-07-24 01:04] VITALS: BP 113/65; PULSE 93
[2025-07-24 01:13] VITALS: BP 113/65; PULSE 93; RESP 16; TEMP 36.3; O2SAT 100
== END 2025-07-24 01:12 | disposition home or self-care (01) ==
LOC: OPOB 22:22 → OBGYN 22:22
PROVIDERS: PCP Family Medicine; Visit Provider Family Medicine
DX: O26.899 Other specified pregnancy related conditions, unspecified trimester (principal); Z3A.00 Weeks of gestation of pregnancy not specified; R10.9 Unspecified abdominal pain
CPT/HCPCS: 59025; 99211

== ENCOUNTER 2025-07-24 21:42 | Outpatient (CLI) | payer SELFPAY ==
[2025-07-24] VITALS (8 sets, daily range): BP systolic 99–124; BP diastolic 55–70; PULSE 87–105; RESP 16; TEMP 36.7; O2SAT 99; BMI 26.5
== END 2025-07-24 23:13 | disposition home or self-care (01) ==
LOC: OPOB 21:42 → OBGYN 21:43
PROVIDERS: PCP Family Medicine; Visit Provider Family Medicine
DX: O26.899 Other specified pregnancy related conditions, unspecified trimester (principal); Z3A.00 Weeks of gestation of pregnancy not specified; R10.9 Unspecified abdominal pain
CPT/HCPCS: 59025; 99211

== ENCOUNTER 2025-07-25 07:31 | Inpatient (IN) | payer SELFPAY ==
[2025-07-25] VITALS (12 sets, daily range): BP systolic 101–122; BP diastolic 65–76; PULSE 79–111; RESP 16–18; TEMP 36.5–36.8; O2SAT 97–99; BMI 26.5
[2025-07-25] MEDS: oxytocin 30 UNIT/500 ML BAG 600 UNIT (07:19)
[2025-07-25 07:25] LABS: Hematocrit 27.8 % (36-47); Hemoglobin 8.60 g/dL (11.27-16.99); Mean Corpuscular HGB Conc 30.9 g/dL (30-55); Mean Corpuscular Hemoglobin 24.6 pg (27-33); Mean Corpuscular Volume 79.7 fl (85-98); Nucleated Red Blood Cells % 0 %; Platelet Count 180 10^3/cmm (157-399); Red Blood Count 3.49 10^6/uL (3.85-5.65); White Blood Count 7.69 10^3/uL (3.29-11.43)
--- NOTE | 2025-07-25 07:31 | PM.OPHPUD ---
Labor & Delivery H&P Update Date of Procedure: July 25, 2025 Date H&P Performed: 07/14/25 Changes to previous documentation: The patient arrived to the hospital with her cervical exam being complete with intact membranes. Admission Diagnosis: 20-year-old 4 para 3-0-0-3 at 36 weeks and 2 days EGA in active labor Planned procedure: Spontaneous vaginal delivery Other information: The patient is a 20-year-old female who has had a history of labor and has had multiple episodes of arriving at the hospital concerned about contractions. She was at the hospital last night complaining of contractions. Her contractions were nonsevere at that time. There were intermittent. She was not making cervical change. This morning she arrived and was found to be complete. As previously mentioned, her was notable for having multiple episodes of contractions and at one point was sent to [place] due to some cervical change. Her care was inconsistent. Her blood type is B-. Her antibody screen was negative. Her GBS status is unknown. The patient never performed glucose screen. She was rubella immune. she received a RhoGAM shot around 28 weeks. Related Problem List Diagnoses 1. 36 weeks gestation of : 2. labor in third trimester: A&P Assessment and plan 1. 36 weeks gestation of : The patient will deliver shortly. No further interventions needed at this time. Status: Acute 2. labor in third trimester: Status: Acute PDMP PDMP Reviewed: Not Reviewed
--- NOTE | 2025-07-25 07:41 | PM.DELIVERY ---
Delivery Note: Date of delivery: July 25, 2025 Pre-delivery diagnoses: 20-year-old 4 para 3-0-0-3 at 36 weeks estimated gestational age in active labor Post-delivery diagnoses: Status post spontaneous vaginal delivery Procedure: Spontaneous vaginal delivery Delivering Physician: Osman Brooks Estimated blood loss (mL): 200 Pre-Delivery Course: The patient arrived to the hospital in active labor. She was checked and found to be complete. Her membranes were intact. I was contacted immediately came to the hospital. I arrived to the hospital and performed an amniotomy. Clear fluid was noted. Delivery: DELIVERY: The patient progressed to complete without difficulty. She delivered a male with a weight of 6 pounds 5 ounces with Apgars of 8, 8. The baby was delivered from the BRANDON position. The baby's mouth and nose were suctioned at the site of the perineum. The baby was then completely delivered and placed on the mother's abdomen. The cord was then clamped and cut. There was a nuchal cord x 1. There was no meconium. The placenta and 3 vessel cord were delivered intact shortly thereafter. The perineum and vaginal vault were carefully examined. No lacerations were noted. Both the mother and the baby were in stable condition. Post-Delivery Status: Good History History History 5 Term 3 1 Miscarriages/Ectopic 0 Living Children 4 A&P Assessment and plan 1. 36 weeks gestation of : 2. labor in third trimester: 3. Spontaneous vaginal delivery: PDMP PDMP Reviewed: Not Reviewed Coding Level of Care Code Acute Code for Chg Fwd Diagnoses 36 weeks gestation of Z3A.36 labor in third trimester O60.03 Spontaneous vaginal delivery O80
[2025-07-25] MEDS: PRENATAL VIT NO.130/IRON/FOLIC 1 EACH TABLET PO (08:26)
[2025-07-25] MEDS: benzocaine-menthol 78 gm Canister 1 SPRAY TOPICAL (08:26)
[2025-07-25] MEDS: HYDROcodone-acetaminophen 5-325 mg Tablet PO (08:26)
[2025-07-25 20:22] LABS: Hematocrit 22.9 % (36-47); Hemoglobin 7.10 g/dL (11.27-16.99); Mean Corpuscular HGB Conc 31.0 g/dL (30-55); Mean Corpuscular Hemoglobin 24.8 pg (27-33); Mean Corpuscular Volume 80.1 fl (85-98); Platelet Count 195 10^3/cmm (157-399); Red Blood Count 2.86 10^6/uL (3.85-5.65); White Blood Count 7.54 10^3/uL (3.29-11.43)
[2025-07-26 03:57] VITALS: BP 117/80; PULSE 82; RESP 16; TEMP 36.7; O2SAT 98
[2025-07-26 05:13] LABS: Hematocrit 25.1 % (36-47); Hemoglobin 7.30 g/dL (11.27-16.99); Mean Corpuscular HGB Conc 29.1 g/dL (30-55); Mean Corpuscular Hemoglobin 24.2 pg (27-33); Mean Corpuscular Volume 83.1 fl (85-98); Platelet Count 176 10^3/cmm (157-399); Red Blood Count 3.02 10^6/uL (3.85-5.65); White Blood Count 7.70 10^3/uL (3.29-11.43)
--- NOTE | 2025-07-26 08:02 | PM.OBGYDC ---
Discharge Providers [employer] Date of Admission: 07/25/25 07:31 Date of Discharge: 07/26/25 Attending Provider at Admission: Osman Brooks MD Attending Provider at Discharge: Osman Brooks MD Primary Care Provider: Osman Brooks MD Diagnoses at Discharge Discharge Diagnosis 1. 36 weeks gestation of : 2. labor in third trimester: 3. Spontaneous vaginal delivery: Reason for Visit Reason for Visit: contractions Hospital Course Hospital Course The patient presented to the hospital in active labor with her cervix completely dilated. She delivered her baby without incident shortly thereafter. The remainder of her hospital stay was unremarkable. Her bleeding was within normal limits. She breast-fed well. Her pain was well-controlled. Information Peripartum Data: Infant Delivery Method: Vaginal Physical Exam Narrative: The patient is alert. She appears comfortable. Her heart has a regular rate and rhythm with no murmurs appreciated. Lungs are clear to auscultation bilaterally. Her fundus is firm and below the umbilicus. History History History 5 Term 3 1 Miscarriages/Ectopic 0 Living Children 4 Discharge Data Studies Completed and Pending Laboratory Results WBC 7.70 10^3/uL (3.29-11.43) 07/26/25 05:05 RBC 3.02 10^6/uL (3.85-5.65) L 07/26/25 05:05 Hgb 7.30 g/dL (11.27-16.99) L 07/26/25 05:05 Hct 25.1 % (36-47) L 07/26/25 05:05 MCV 83.1 fl (85-98) L 07/26/25 05:05 MCH 24.2 pg (27-33) L 07/26/25 05:05 MCHC 29.1 g/dL (30-55) L D 07/26/25 05:05 RDW 14.6 % (12.1-15.1) 07/26/25 05:05 Plt Count 176 10^3/cmm (157-399) 07/26/25 05:05 MPV 9.6 fL (7.4-10.4) 07/26/25 05:05 Neut % (Auto) 70.8 % 07/25/25 07:13 Lymph % (Auto) 21.2 % 07/25/25 07:13 [place] % (Auto) 5.5 % 07/25/25 07:13 Eos % (Auto) 1.3 % 07/25/25 07:13 Baso % (Auto) 0.4 % 07/25/25 07:13 Neut # (Auto) 5.45 10^3/uL (1.8-7.7) 07/25/25 07:13 Lymph # (Auto) 1.6 10^3/uL (0.8-4.8) 07/25/25 07:13 [place] # (Auto) 0.4 10^3/uL (0.2-0.9) 07/25/25 07:13 Eos # (Auto) 0.1 10^3/uL (0.0-0.8) 07/25/25 07:13 Baso # (Auto) 0.0 10^3/uL (0.0-0.1) 07/25/25 07:13 Nucleated RBC % (auto) 0 % 07/25/25 07:13 Nucleated RBCs # 0.0 /100WBC 07/25/25 07:13 Blood Type B Negative 07/25/25 07:13 Rho(D) Type Rh negative 07/25/25 07:13 Antibody Screen Negative 07/25/25 07:13 Vitals Last Vital Signs Temp 98.0 F 07/26/25 03:57 Pulse 82 07/26/25 03:57 Resp 16 07/26/25 03:57 BP 117/80 07/26/25 03:57 Pulse Ox 98 07/26/25 03:57 O2 Del Method Room Air 07/26/25 03:57 Results Labs OB ([facility]): Obstetrics US 06/09/25 Blood Type B Negative 07/25/25 Antibody Screen Negative 07/25/25 Hct, (36-47) 25.1 % L Today Hgb, (11.27-16.99) 7.30 g/dL L Today Rho(D) Type Rh negative 07/25/25 Plt Count, (157-399) 176 10^3/cmm Today Gest Glucose Tolerance mg/dL 12/10/23 Ser , Semi-Qnt 50746.00 mIU/mL 03/27/25 Micro Urine Specimen 12/21/24 Discharge Plan Discharge Patient Disposition: Home Condition: Stable Prescriptions: New ibuprofen 800 mg Tablet 800 mg PO TID Qty: 45 0RF Continued [id number] 1 mg Tablet 1 tab PO DAILY Discharge Order = DC NOW: Discharge Order (Routine); Ordered 07/26/25 Ordered By: Osman Brooks Referrals: Osman Brooks MD [Primary Care Provider, [facility]] - 6 Weeks Discharge Diet: Usual diet Discharge Activity: Limit activity as instructed Patient Instructions: Opioid Safety, Patient Portal & Blessing Instructions Discharge Attestations [employer] Time Spent in Discharge Care*: less than 30 min Coding Level of Care Code Acute Code for Chg Fwd Diagnoses 36 weeks gestation of Z3A.36 labor in third trimester O60.03 Spontaneous vaginal delivery O80
[2025-07-26] MEDS: PRENATAL VIT NO.130/IRON/FOLIC 1 EACH TABLET PO (09:51)
[2025-07-26 10:05] VITALS: BP 120/79; PULSE 94; RESP 16; TEMP 36.6; O2SAT 97
== END 2025-07-26 10:08 | disposition home or self-care (01) | DRG 807 ==
LOC: OPOB 07:31 → OBGYN 07:31
PROVIDERS: Admitting Provider Family Medicine; PCP Family Medicine; Visit Provider Family Medicine
DX: O60.14X0 Preterm labor third trimester with preterm delivery third trimester, not applicable or unspecified (principal); Z37.0 Single live birth; O69.81X0 Labor and delivery complicated by cord around neck, without compression, not applicable or unspecified; Z3A.36 36 weeks gestation of pregnancy
CPT/HCPCS: 36415; 59025; 59409; 85025; 85027; 86850; 86900; 99211; J2590; J7120; J9999